=== PATIENT | male | born 1965 | race Hispanic/Latino ===

== ENCOUNTER 2017-05-30 03:29 | Inpatient (IN) | payer OTHER, SELFPAY ==
[2017-05-30 04:08] LABS: #Lymphocytes 1.7 thou/uL (1.20-3.40); #Monocytes 1.1 thou/uL (0.11-0.59); #Neutrophils 13.5 thou/uL (1.40-6.50); %Basophils 0.2 % (0.0-1.0); %Eosinophils 0.2 % (0.0-10.0); %Lymphocytes 10.5 % (21.0-51.0); %Monocytes 6.5 % (0.0-10.0); %Neutrophils 82.6 % (42.0-75.0); Hemoglobin 16.3 g/dL (14.0-18.0); Mean Corpuscular Hemoglobin 31.5 pg (27.0-31.0); Mean Platelet Volume 8.7 fL (7.4-10.4); Platelet Count 147 thou/uL (130-400); RBC Distribution Width 12.2 % (11.5-14.5); Red Blood Cell (RBC) Count 5.18 mill/uL (4.70-6.10); White Blood Cell (WBC) Count 16.4 thou/uL (4.8-10.8)
[2017-05-30] MEDS ORDERED: Ondansetron HCl/PF 4 MG/2 ML Vial ONE ×2 (04:14→14:33)
[2017-05-30 04:28] LABS: ALT (SGPT) 25 U/L (8-55); AST (SGOT) 17 U/L (5-34); Albumin 4.4 g/dL (3.5-5.0); Alkaline Phosphatase 73 U/L (40-150); Anion Gap 13 mmol/L (10-20); BUN (Urea Nitrogen) 12 mg/dL (8.9-20.6); Bilirubin, Total 1.2 mg/dL (0.2-1.2); Calc. Creatinine Clearance 0 mL/min (70-130); Calcium 9.4 mg/dL (7.8-10.44); Carbon Dioxide 26 mmol/L (22-29); Chloride 101 mmol/L (98-107); Estimated GFR-MDRD 84; Globulin 3.1 g/dL (2.4-3.5); Glucose 144 mg/dL (70-105); Lipase 26 U/L (8-78); Potassium 3.8 mmol/L (3.5-5.1); Protein, Total 7.5 g/dL (6.0-8.3); Sodium 136 mmol/L (136-145)
[2017-05-30 05:03] LABS: CKMB 0.6 ng/mL (0-6.6); Troponin I Less than 0.010 ng/mL (< 0.028)
[2017-05-30] MEDS ORDERED: Piperacillin/Tazobactam 3.375 GM in Sodium Chloride 0.9% 100 ML IVPB SCH (05:15)
[2017-05-30 05:28] LABS: Bilirubin Negative (Negative); Blood, Urine Negative (Negative); Clarity CLEAR (Clear); Glucose, Urine (Dipstick) Negative (Negative); Leukocyte Negative (Negative); Nitrite Negative (Negative); Protein, Urine (Dipstick) Negative (Neg-Trace); Urobilinogen 0.2 mg/dL (0.2-1.0); pH, Urine 6.5 (5.0-9.0)
[2017-05-30 05:30] LABS: Specific Gravity, Urine 1.052 (1.002-1.036)
[2017-05-30] MEDS ORDERED: Promethazine HCl 25 MG/ML VIAL IM PRN ×2 (08:23→14:52)
[2017-05-30] MEDS ORDERED: Ondansetron HCl/PF 4 MG/2 ML Vial IVP PRN ×2 (08:23→14:52)
[2017-05-30 08:26] VITALS: BMI 43.0
--- NOTE | 2017-05-30 09:42 | CT ---
PRELIMINARY REPORT/[facility]/EMERGENCY AFTER HOURS PROCEDURE: Addendum created by Yuan Dowell MD on 05/30/2017 5:06 AM Central Time ([place] & [place]) THIS REPORT CONTAINS FINDINGS THAT MAY BE CRITICAL TO PATIENT CARE. The findings were verbally commun icated via telephone conference with ELFEGO OVALLE at 5:06 AM ACCOUNTING TECHNICIAN on 05/30/2017. The findings were ack nowledged and understood. Initial Report created on 05/30/2017 4:51 AM Central Time ([place] & [place]) EXAM: CT Abdomen and Pelvis With Intravenous Contrast EXAM DATE/TIME: Exam ordered 05/30/2017 4:32 AM CLINICAL HISTORY: 51 years old, male; Pain; Abdominal pain; Generalized; Patient HX: Abd pain TECHNIQUE: Axial computed tomography images of the abdomen and pelvis with intravenous contrast. Coronal reformatted images were created and reviewed. CONTRAST: 100 mL of ISOVUE administered intravenously. COMPARISON: No relevant prior studies available. FINDINGS: Lower thorax: There is subpleural atelectasis of the dependent portions of the lungs. ABDOMEN: Liver: There are multiple liver hypodensities that cannot be further characterized on the current exa mination. Gallbladder and bile ducts: The gallbladder is normal. There is no evidence of biliary ductal dilatio n. No calcified stones. Pancreas: The pancreas appears normal. No ductal dilation. Spleen: The spleen is normal. Adrenals: The adrenal glands are normal. Kidneys and ureters: The kidneys appear normal. No hydronephrosis. Stomach and bowel: The stomach is normal. The duodenum is unremarkable. The colon is normal. No obst ruction. No mucosal thickening. Appendix: There appendix is dilated up to 13 mm with wall thickening and periappendiceal edema. Ther e is an appendicolith at the base of the appendix. Findings are consistent with acute appendicitis. PELVIS: Bladder: The bladder is normal. Reproductive: The prostate gland and seminal vesicles are normal. ABDOMEN and PELVIS: Intraperitoneal space: Normal. No free air. No significant fluid collection. Bones/joints: No acute fracture. No dislocation. Soft tissues: Normal. Vasculature: Normal. No abdominal aortic aneurysm. Lymph nodes: Normal. No enlarged lymph nodes. IMPRESSION: Acute appendicitis as above. Thank you for allowing us to participate in the care of your patient. Dictated and Authenticated by: Yuan Dowell MD 05/30/2017 4:51 AM Central Time ([place] & [place]) FINAL REPORT ABDOMEN CT WITH CONTRAST PELVIC CT WITH CONTRAST: HISTORY: Abdominal pain. COMPARISON: None. TECHNIQUE: Abdomen and pelvic CT are performed with IV contrast. Coronal reformatted images are submitted for i nterpretation. FINDINGS: This report is in agreement with the preliminary report by [facility]. Acute appendicitis. No evidence of complications such as perforation or abscess. POS: [facility]
[2017-05-30] MEDS ORDERED: Lidocaine 2% w/Epinephrine 1:200K 20 ML VIAL ONE (12:20)
[2017-05-30] MEDS ORDERED: Bupivacaine 0.25% HCL 30 ML VIAL ONE (12:20)
[2017-05-30] MEDS ORDERED: Fentanyl 100 MCG/2 ML VIAL ONE (12:27)
[2017-05-30] MEDS ORDERED: Piperacillin/Tazobactam 3.375 GM VIAL ONE (12:32)
--- NOTE | 2017-05-30 13:11 | HP ---
CHIEF COMPLAINT: Right lower quadrant pain. HISTORY OF PRESENT ILLNESS: This is a 51-year-old male presents with a 24-hour history of p ain in his right lower quadrant, described as sharp, 11/18, does not radiate, associated with nausea, no vomiting. No change in stools. No chronic abdominal pain or inflammatory bowel disease. CT sca n shows acute appendicitis. PAST MEDICAL HISTORY: He denies. PAST SURGICAL HISTORY: Denies. MEDICINES TAKEN DAILY: None. ALLERGIES: No known drug allergies. SOCIAL HISTORY: No smoking, alcohol or other drugs. REVIEW OF SYSTEMS: Ten-system review of systems otherwise negative unless described above. PHYSICAL EXAMINATION: HEENT: Sclerae are anicteric. Oropharynx clear. NECK: No lymphadenopathy. LUNGS: Clear. HEART: Regular rate and rhythm. ABDOMEN: Soft, tender right lower quadrant, localized guarding. No rebound, no abdominal or inguina l hernias. EXTREMITIES: No ischemia or edema to extremities. ASSESSMENT: Acute appendicitis. PLAN: Laparoscopic appendectomy. Risks, benefits and alternatives discussed. He gives consent. We will do this today.
[2017-05-30] MEDS ORDERED: ISOVUE-370 76%-LOCM 1 ML ONE (13:20)
--- NOTE | 2017-05-30 13:48 | OP ---
DATE OF PROCEDURE: 05/30/2017 PREOPERATIVE DIAGNOSIS: Acute appendicitis. POSTOPERATIVE DIAGNOSIS: Acute appendicitis. PROCEDURE: Laparoscopic appendectomy. SURGEON: Jose Meraz M.D. ANESTHESIA: General. ESTIMATED BLOOD LOSS: Minimal. COMPLICATIONS: None. SPECIMEN: Appendix. FINDINGS: Acute appendicitis. TECHNIQUE: The patient was taken to the operating room table and placed supine on the operating room table. After general anesthetic was obtained, a Martinez was placed. The abdomen was shaved, prepped and draped in a sterile fashion. Curved incision was made below the umbilicus. Cautery was used to dissect down to and score the fascia. Abdominal cavity entered bluntly using a Imelda clamp. Holding stitch of PDS was placed on each side of the fascia, a 12-mm trocar was placed. High-flow pneumoper itoneum was obtained. A suprapubic 5-mm port and a left lower quadrant 5-mm port were placed under d irect visualization. Cecum was rolled over to reveal acute appendicitis. A window was made at the b ase of the appendix in the mesoappendix. Laparoscopic stapler was fired across the base of the appen enedelia. A vascular reload fired across the mesoappendix. Appendix placed in the Endocatch bag and brou ght out through the umbilical incision. All port sites were infiltrated using local anesthetic. The re was one bleeder on the staple line that was clipped using laparoscopic clips. Right lower quadran t and pelvis was irrigated using sterile solution. There was no evidence of injury to any intraabdom inal structures. There was no evidence of perforation, although the appendix was stuck to the pelvic sidewall upon entering the abdomen. This was able to be bluntly dissected away. All port sites wer e infiltrated using local anesthetic. All ports were removed under camera visualization. Peritoneum was let down. PDS was used to close the fascial defect below the umbilicus. All incisions were irr igated and closed using 4-0 Monocryl and Dermabond. The patient was en route to recovery in stable c ondition. All instrument counts, needle counts, and lap counts were correct.
[2017-05-30] MEDS ORDERED: Ketorolac Tromethamine 30 MG/ML VIAL ONE (14:33)
[2017-05-30] MEDS ORDERED: Lidocaine 1% PF 5 ML VIAL ONE (14:33)
[2017-05-30] MEDS ORDERED: Dexamethasone 20 MG/5 ML VIAL ONE (14:33)
[2017-05-30] MEDS ORDERED: PROPOFOL 200 MG/20 ML VIAL ONE (14:33)
[2017-05-30] MEDS ORDERED: Glycopyrrolate 0.2 MG/ML 5 ML SYRINGE ONE (14:33)
[2017-05-30] MEDS ORDERED: hydrALAZINE 20 MG/ML VIAL SLOW IVP PRN (14:52)
[2017-05-30] MEDS ORDERED: HYDROcodone/Acetaminophen 10/325 mg Tablet PO PRN ×2 (14:52)
[2017-05-30] MEDS ORDERED: Dextrose 5% in Water 1,000 ML IV PRN (14:52)
[2017-05-30] MEDS ORDERED: Dextrose 50% Abboject 50 ML SYRINGE SLOW IVP PRN (14:52)
[2017-05-30] MEDS ORDERED: Morphine 5 mg/5 ml in 0.9% NaCl/PF SYRINGE IVP PRN (15:00)
[2017-05-30] MEDS: Sodium Chloride 0.9% 1,000 ML IV SCH (18:16)
[2017-05-30] MEDS: Piperacillin/Tazobactam 3.375 GM in Sodium Chloride 0.9% 100 ML IVPB SCH ×2 (18:16→23:03)
[2017-05-30] MEDS: Famotidine/PF 20 mg/2ml Vial SLOW IVP SCH (19:45)
[2017-05-30] MEDS: Famotidine 20 MG TAB PO SCH (19:45)
[2017-05-31] MEDS: Sodium Chloride 0.9% 1,000 ML IV SCH ×2 (01:56→11:20)
[2017-05-31] MEDS: Piperacillin/Tazobactam 3.375 GM in Sodium Chloride 0.9% 100 ML IVPB SCH (05:07)
[2017-05-31 05:13] VITALS: BP 99/68
[2017-05-31] MEDS: Famotidine 20 MG TAB PO SCH (08:36)
[2017-05-31] MEDS: Famotidine/PF 20 mg/2ml Vial SLOW IVP SCH (08:37)
[2017-05-31 08:57] VITALS: TEMP 98.4
--- NOTE | 2017-05-31 09:04 | DIS ---
ADMIT DIAGNOSIS: Acute appendicitis. DISCHARGE DIAGNOSIS: Acute appendicitis. PROCEDURES: Laparoscopic appendectomy by Dr. Meraz without complication. CONDITION AT DISCHARGE: Improved. STAFF: Dr. Jose Meraz. HOSPITAL COURSE: The patient was admitted postop. He remained on Zosyn overnight. Postop day 1, th e patient was doing well. He is to be discharged home. He is given a prescription for Augmentin, No rco, Zofran. He also was given a note to be off work for a week. He will follow up with me in the o ffice in 1 week. He will call with fever, chills, increased abdominal pain or other issues.
--- NOTE | 2017-06-25 14:22 | EKG ---
Test Reason : ABDPAIN Blood Pressure : / mmHG Vent. Rate : 085 BPM Atrial Rate : 085 BPM P-R Int : 180 ms QRS Dur : 096 ms QT Int : 352 ms P-R-T Axes : 053 -21 016 degrees QTc Int : 418 ms Normal sinus rhythm Normal ECG Confirmed by YAMILE Ledezma, ELFEGO ([id number]), editorial manager GAIL BAUER ([id number]) on 06/25/2017 2:21:29 PM Referred By: ANUPAMA Confirmed By:ELFEGO OVALLE M.D.
== END 2017-05-31 11:38 | disposition home or self-care (01) | DRG 343 ==
LOC: ERS 03:29 → SURG A 05:00
PROVIDERS: ADMIT Surgery; ATTEND Surgery
PROC: 0DTJ4ZZ Resection of Appendix, Percutaneous Endoscopic Approach (ICD-10-PCS; principal; 2017-05-30)
DX: K35.80 Unspecified acute appendicitis (principal)
CPT/HCPCS: 36415; 74177; 80053; 81003; 82553; 83690; 84484; 85025; 86140; 88304; 93005; 96361; 96365; 96375; J1100; J1885; J2001; J2270; J2405; J2543; J2704; J3010; J7050; S0020